=== PATIENT | male | born 1940 | race Caucasian/White ===

== ENCOUNTER → 2023-07-31 10:17 | Outpatient (REF) | payer MEDICARE, SELFPAY | LOC: DHVS 10:17 | PROVIDERS: ATTENDING PHYSICIAN Surgery Vascular Surgery | DX: I65.22 Occlusion and stenosis of left carotid artery (principal) | CPT/HCPCS: 93880 ==

== ENCOUNTER → 2023-09-19 11:10 | Outpatient (REF) | payer MEDICARE, SELFPAY | LOC: RCS 11:10 | PROVIDERS: ATTENDING PHYSICIAN Internal Medicine Interventional Cardiology; FAMILY PHYSICIAN Internal Medicine | DX: I35.0 Nonrheumatic aortic (valve) stenosis (principal) | CPT/HCPCS: 93306 ==

== ENCOUNTER → 2024-02-22 10:40 | Outpatient (REF) | payer MEDICARE, SELFPAY | LOC: DHVS 10:40 | PROVIDERS: ATTENDING PHYSICIAN Surgery Vascular Surgery; FAMILY PHYSICIAN Internal Medicine; OTHER PHYSICIAN Physician Assistant | DX: I65.22 Occlusion and stenosis of left carotid artery (principal) | CPT/HCPCS: 93880 ==

== ENCOUNTER → 2024-03-20 14:11 | Outpatient (REF) | payer MEDICARE, SELFPAY | LOC: HWRAD 14:11 | PROVIDERS: ATTENDING PHYSICIAN Orthopaedic Surgery Hand Surgery; FAMILY PHYSICIAN Internal Medicine | DX: M25.512 Pain in left shoulder (principal) | CPT/HCPCS: 73200 ==

== ENCOUNTER 2024-04-15 09:25 | Emergency (ER) | payer MEDICARE, SELFPAY ==
[2024-04-15 09:29] VITALS: BP 163/83
[2024-04-15 10:00] LABS: % Basophils 0.9 % (0-2); % Eosinophils 2.6 % (0-6); % Immature Granulocytes 0.5 % (0-0.5); % Monocytes 10.1 % (1.7-9.3); % Neutrophils 66.9 % (42.2-75.2); Absolute Basophils 0.1 10^3/uL (0-0.2); Absolute Eosinophils 0.2 10^3/uL (0-0.7); Absolute Immature Granulocytes 0.1 10^3/uL (0-0.05); Absolute Lymphocytes 1.8 10^3/uL (1.2-3.4); Absolute Neutrophils 6.3 10^3/uL (1.4-6.5); Hematocrit 40.9 % (39.0-52.0); Mean Corp Hgb Conc. 34.2 g/dL (33.0-37.0); Mean Corpuscular Hgb 31.1 pg (27.0-31.0); Mean Corpuscular Volume 90.9 fL (80.0-94.0); Mean Platelet Volume 10.1 fL (7.4-10.4); Nucleated Red Blood Cells % 0 % (-); Platelet Count 250 10^3/uL (130-400); Red Cell Dist. Width 13.5 % (11.5-14.5); White Blood Cell Count 9.4 10^3/uL (4.8-10.8)
[2024-04-15 10:16] LABS: ALT (SGPT) 18 U/L (0-50); AST (SGOT) 27 U/L (17-59); Albumin 4.2 g/dl (3.5-5.0); Alkaline Phosphatase 77 U/L (38-126); Blood Urea Nitrogen 22 mg/dl (9-20); Calcium 8.6 mg/dl (8.4-10.2); Carbon Dioxide 30 mmol/L (22-30); Chloride 102 mmol/L (98-107); Glucose 81 mg/dl (70-99); Potassium 3.9 mmol/L (3.5-5.1); Sodium 140 mmol/L (135-145); Total Bilirubin 0.5 mg/dl (0.2-1.3); Total Protein 7.1 g/dl (6.3-8.2); eGFR > 60.00
[2024-04-15 10:24] LABS: Troponin I 0.028 ng/ml
--- NOTE | 2024-04-15 10:56 | ED.GENMED ---
History of Present Illness
General
Chief Complaint: Cardiac Symptoms
Source: patient
Exam Limitations: none
Time Seen by Provider: 04/15/24 10:55
Nursing documentation reviewed up to this point in time: agreed with
History of Present Illness
History of Present Illness:
83-year-old male past medical history of AAA, hypertension hyperlipidemia presenting to the emergency department with concerns of weakness fatigue left-sided chest pressure some pain going into the left arm initially had some tingling into the pinky
finger and ring finger which has since resolved. Very minimal symptoms at this time.
Past History
Past History
ED Past Medical History: Cancer (Colon, skin), HTN, Hypercholesterolemia and Other (PE >25yrs ago)
ED Past Surgical History: Bowel resection and Orthopedic
Social History
Tobacco: Non-smoker
Alcohol: Occasional
Drug: None
Personal:
Living: with family
Review of Systems
Review of Systems
Allergies reviewed?: Yes
All Other Systems: ROS reviewed and negative except as documented in HPI and ROS
Phy Exam
Physical Exam
Physical Exam:
GENERAL: Alert , in no apparent distress
EYE: pupils equal and reactive
NECK: Supple, no significant adenopathy.
ENT: o/p clr, mmm.
CARDIAC: Regular rate and rhythm .
LUNGS: Clear breath sounds bilaterally, no acute respiratory distress, no wheezes/rales/rhonchi
ABDOMEN: Soft, without focal tenderness, no r/g, no cvat
NEUROLOGICAL: Alert and oriented, no focal neuro deficits
SKIN: Warm and dry, skin intact.
MUSCULOSKELETAL: No edema, well perfused.
PSYCH: Normal and appropriate interaction.
Course
Orders/Labs/Results
Orders:
Orders
04/15/24 09:26
ECG [Electrocardiogram (*1)] Urgent
Reason for Study: Chest Pain
Other Reason for Exam: L arm pain
EKG- Treatment ONCE
04/15/24 09:50
Complete Blood Count/With Diff Urgent
Comprehensive Metabolic Panel Urgent
Troponin I Urgent
04/15/24 10:56
Chest [CR Chest - 2 Views ] Urgent
Comment:
Reason For Exam: L chest pain
04/15/24 12:28
Echo 2D MMode Color/Doppler [Echo 2D MMode Color/Doppler] Routine
Reason for Study: chest pain, SOB, known aortic stenosis
Cardiology Consult: Douglas Pires
BNP [NT-proBNP] Urgent
Troponin I Urgent
04/15/24 12:30
Electrocardiogram (*1) Urgent
Reason for Study: Chest Pain
EKG- Treatment ONCE
04/15/24 15:43
CARDIOLOGY CONSULT Urgent
Consulting Provider: Kevin Duff
Was physician already notified: Yes
Abnormal Lab Results
04/15/24
09:50
RBC 4.50 L 10^6/uL
(4.70-6.10)
MCH 31.1 H pg
(27.0-31.0)
Abs Immat Gran (auto) 0.1 H 10^3/uL
(0-0.05)
Absolute Monos (auto) 1.0 H 10^3/uL
(0.1-0.6)
Lymphocytes % 19.0 L %
(20.5-51.1)
Monocytes % 10.1 H %
(1.7-9.3)
BUN 22 H mg/dl
(9-20)
04/15/24 09:50
04/15/24 09:50
Vital Signs
Initial and Last Documented VS:
Initial Vital Signs
Temp Pulse Resp BP Pulse Ox
97.8 F 55 16 163/83 98
04/15/24 09:29 04/15/24 09:29 04/15/24 09:29 04/15/24 09:29 04/15/24 09:29
Last Documented Vital Signs
Temp Pulse Resp BP Pulse Ox
97.8 F 55 16 150/69 97
04/15/24 09:29 04/15/24 13:30 04/15/24 13:30 04/15/24 13:00 04/15/24 13:15
MDM/Problems Addressed
MDM/Problems Addressed:
83-year-old male presenting to the emergency department with left-sided chest pain. Also some radiation to his arm and some tingling into his pinky and ring finger. Here initial blood pressure elevated otherwise normal vital signs labs
unremarkable, troponin negative chest x-ray without emergent findings EKG unchanged. Patient does have significant pansystolic murmur that is consistent with patient's known aortic stenosis. Otherwise labs here unremarkable troponin negative x 2
BNP in the 400s. Chest x-ray without emergent findings. Cardiology consulted saw the patient and got an echo here. Patient was assessed by the cardiology attending and deemed stable for outpatient close follow-up. Return precautions given.
*Critical Care Note
Total Time (30-74mins, 75-104mins- exclusive of procedures): Not Applicable
ED Attending Note
-
Portions of this chart may have been created with voice recognition software.� Occasional wrong word or��sound alike� substitutions may have occurred due to the inherent limitations of voice recognition software.
Discharge Plan
Departure
Patient Disposition: Home (Routine Discharge)
Date of Disposition: 04/15/24
Time of Disposition: 15:44
Patient with high blood pressure during this ER visit?: No
Condition: Good
Covid-19: Not Applicable
Discharge Problem:
Chest pain
Instructions: Chest Pain (DC)
Prescriptions:
No Action
Kemar Original 325-1,916-1,000 mg Tablet, Effervescent
1 tab PO DAILYPRN PRN (Reason: stomach issues)
Patient Comments:
9/13/23 BD: Patient awake that wanda garner contains aspirin and states that typical dose is one tablet which contains ~162mg aspirin. When taken, aware that this is a substitute for daily aspirin.
melatonin 3 mg tablet
3 mg PO HSPRN PRN (Reason: sleep)
docusate sodium 100 MG capsule
100 mg PO DAILYPRN PRN (Reason: constipation)
pantoprazole 40 MG tablet,delayed release (DR/EC)
40 mg PO DAILY
aspirin 81 mg tablet,chewable
81 mg PO DAILY
atorvastatin 80 mg Tablet
80 mg PO QPM 30 Days Qty: 30 0RF
clopidogrel 75 mg Tablet
75 mg PO DAILY 30 Days Qty: 30 0RF
Referrals:
Douglas Singh MD [Active] - 06/27/24 8:40 am (You have cardiology follow-up with Dr. Singh on June 27 at 8:40 AM in [address] in the [place]. If you are unable to make this appointment please call [phone] to reschedule)
David Boyd MD [Family Provider] -
Activity Restrictions/Additional Instructions:
You came to the emergency department today with concerns of chest discomfort. Here you had a reassuring assessment. Please follow closely with cardiology. Return to the emergency department for any worsening, new or concerning symptoms.
Interventions
Interventions:
*Risk Screen - Suicide Last Done: 04/15/24 09:29
*Neglect/Abuse Screening Last Done: 04/15/24 09:29
ED- Fall Risk Assessment Last Done: 04/15/24 12:34
ED- Pulmonary Assessment Last Done: 04/15/24 12:34
ED- Cardiac Assessment Last Done: 04/15/24 12:34
Discharge Date and Time
Print Language: HONDURAN
[2024-04-15 11:37] VITALS: BP 142/76
[2024-04-15 12:00] VITALS: BP 146/75
[2024-04-15 12:27] VITALS: BMI 35.4
[2024-04-15 12:29] VITALS: BP 144/77
[2024-04-15 13:00] VITALS: BP 150/69
[2024-04-15 14:16] LABS: NT-proBNP 411 pg/ml; Troponin I 0.018 ng/ml
--- NOTE | 2024-04-15 15:04 | CON.CAR ---
Addendum entered and electronically signed by Kevin Duff DO 04/15/24 16:34:
I saw and examined the patient.
The Well Drill Operator's note was reviewed and I agree with the note.
Comment:
Plan:
His chest pain was atypical and fleeting and has resolved. Trop were negative for ischemia. His EKG was unremarkable.
Urgent echo performed that was stable overall from his last echo in September 2023, other than a slight increase in his peak aortic valve gradient. His mean gradient remain unchanged. We discussed follow-up evaluation with Dr. Singh given his moderate
to severe aortic stenosis. We will move up his routine 6-month appointment. We discussed symptoms to look for with regards to progressive aortic stenosis including but not limited to syncope, shortness of breath in the setting of heart failure and
chest pain. We also discussed that if he has recurrent symptoms, that he should not drive himself to the emergency room that he should use EMS.
Echo Apr 15 2024 read by me: EF of 55% with normal regional wall motion and mild LVH. Aortic valve gradients similar although peak gradient slightly higher currently 66 mmHg (previously 54 mmHg with mean gradient of 34 mmHg. LORE 1.1 cm�.
He has been contemplating shoulder surgery but will likely get an injection of steroids in the interim. He understands that he would need cardiac risk assessment prior to any surgery.
His workup has been negative in the emergency room. He is stable for discharge from a cardiac standpoint.
Discussed with his family member at bedside. He and the patient understand and agree with current status and plan of care.
Discussed with the emergency room.
Original Note:
Consultation
Consultation Request
Date/Time Consultation Requested: 04/15/2024
Date/Time Consultation Performed: 04/15/2024
Requesting Provider: Edgar Martin PA-C
Performing Provider: Lolita Ferraro PA-C for Dr. Kevin Duff
Reason for Consultation: Chest pain
Medical History
-
History of Present Illness:
Patient is an 83-year-old male with past medical history significant for mildly dilated ascending aortic aneurysm, moderate to severe aortic stenosis, hypertension, hyperlipidemia, colon cancer, pulmonary embolism post left knee replacement, acute
stroke December 2022 for which he was found to have significant carotid artery disease status post left CEA who presents to emergency department 04/15/2024 with complaints of sharp left-sided chest discomfort. Patient reports he awoke in the middle
the night with a sharp stabbing pinpoint chest discomfort that lasted approximately 60 seconds while lying down. Symptoms resolved and he was able to go back to sleep. Upon awakening he just felt off and not quite himself so he decided to come to
emergency department for evaluation. At time of presentation to emergency patient denied having chest pain, shortness of breath, dizziness or lightheadedness. Troponin noted to be elevated at 0.028, repeat 0.018. EKG showed sinus rhythm with
first-degree AV block and no evidence of ischemia chest x-ray showed mild decreased bilateral lung volumes without evidence of pulmonary edema, pleural effusion or pneumonia. proBNP unremarkable at 411. At time of this evaluation patient denies
recurrence of chest discomfort, shortness of breath, dizziness or lightheadedness. He does report recently some issues with balance 'losing my balance and I feel a bit unsteady if I move too quickly.'. He denies falls or reoccurrence of stroke
symptoms.
Past medical history:
Mildly dilated ascending aorta
Aortic stenosis, moderate to severe
Hypertension
Hyperlipidemia
Acute stroke December 2022
Left carotid artery stenosis
Status post left CEA 12/2022
History of colon cancer status post colon resection 1998
Pulmonary embolism post knee replacement
Past Medical History
Past Medical History: Other (See HPI)
Past Surgical History: Bowel Resection (Insetting of colon cancer 1998), Orthopedic (Total left knee replacement) and Other (Eye surgery, left CEA December 2022)
Social History
Tobacco: Non-Smoker
Alcohol: Occasional
Drug: None
Personal:
Living: With Family
Employment: Retired
Family History
Family History: Reviewed & Not Pertinent
Allergies / Home Medications
Allergy/AdvReac Type Severity Reaction Status Date / Time
No Known Allergies Allergy Verified 04/15/24 09:45
�Medication �Instructions �Recorded �Confirmed �Type
aspirin 81 mg chewable tablet 81 mg PO DAILY Blood Clot 12/14/22 12/14/22 History
Prevention/Tx
aspirin-sod bicarb-citric acid 325 1 tab PO DAILYPRN PRN stomach 12/14/22 12/14/22 History
mg-1,916 mg-1,000 mg efferves tab issues
(Kemar Original)
docusate sodium 100 mg capsule 100 mg PO DAILYPRN PRN constipation 12/14/22 12/14/22 History
melatonin 3 mg tablet 3 mg PO HSPRN PRN sleep 12/14/22 12/14/22 History
pantoprazole 40 mg tablet,delayed 40 mg PO DAILY Gastrointestinal 12/14/22 12/14/22 History
release Issue
atorvastatin 80 mg tablet 80 mg PO QPM 30 days #30 tabs 12/17/22 Rx
clopidogrel 75 mg tablet 75 mg PO DAILY 30 days #30 tabs 12/17/22 Rx
Review of Systems
-
History Source: Patient
All other systems: Negative unless noted
Physical Exam
Vital Signs
Temp Pulse Resp BP Pulse Ox
97.8 F 55 16 150/69 97
04/15/24 09:29 04/15/24 13:30 04/15/24 13:30 04/15/24 13:00 04/15/24 13:15
GEN: No distress, awake, Ox3
HEENT: supple, anicteric, mmm
LUNGS: CTA, no wheezes/rales
CV: Reg, S1/S2, 2/6 harsh radiating murmur RSB with lower pitch murmur at apex, no rubs or gallop
ABD: soft, BS+, NT/ND
EXT: No edema, clubbing or cyanosis
NEURO: Gross non-focal
SKIN: No rash, warm, dry, pink
Lab Results
04/15/24 09:50
04/15/24 09:50
Troponin I 0.018 ng/ml D 04/15/24 12:28
Cbn-C-Dwsydvkvfic Pept 411 pg/ml 04/15/24 12:28
Impression / Plan
-
PCP: David Boyd
Shuttle Buggy Operator: Douglas Singh
Impression:
Presentation 04/15/2024 atypical chest pain that awoke patient from sleep
Mildly dilated ascending aorta
Aortic stenosis, moderate to severe
Acute stroke December 2022
Hypertension
Hyperlipidemia
Left carotid artery stenosis
Status post left CEA 12/2022
History of colon cancer status post colon resection 1998
Pulmonary embolism post knee replacement
Echo 04/15/2024: EF 55%. Normal regional wall motion. Mild concentric LVH. Mild MR. Mild MS with mean gradient 5. Moderate to severe aortic stenosis with peak/mean gradient 66/34 mmHg with LORE 1.0 to 1.1 cm�. Mild AI/TR.
Echo 09/19/2023: LV: Normal size and function. EF 54%. Mild LVH. RV: Normal, LA: Moderately dilated, RA: Normal, MV: Trace MR. Mild MS with mean gradient 6 mmHg. AV: Thickened Mild AI, Mod P/M 54/34 mmHg and LORE 1.2 cm2, TV: Trace TR with PAP 26
mmHg.-12/16/2022 Echo: LV: EF 70-75%. RV: Normal, LA: Mildly dilated. RA: Normal, MV: Trace MR, AV: Mild-mod with P/M: 45/20 mmHg. Pvel: 3.35 m/sec. TV: Mild TR with PAP 39 mmHg
12/20/2011 MPI Normal EF, Randy Protocol : 6:15 minutes for (7.2 METs), Perfusion demonstrates : Normal perfusion, LVEF : 72%, ECG : Normal This is a low risk stress study
Plan:
Presents 04/15/2024 atypical left-sided sharp chest pain that awoke patient from sleep. Chest pain lasted approximately 60 seconds then resolved spontaneously. Patient felt unwell upon awakening and decided to seek emergency medical attention.
He has had no reoccurrence of chest pain since the middle of the night. His EKG shows sinus rhythm without ischemic changes. Troponin x 2 is negative. Doubt symptoms are ACS.
Blood pressure initially elevated in emergency department however did improve upon repeat evaluation. Would continue on outpatient dose of amlodipine 5 mg.
Patient has history of known aortic stenosis which is moderate to severe. He underwent echocardiogram today which showed EF of 55% with normal regional wall motion and mild LVH. Aortic valve gradients similar although peak gradient slightly higher
currently 66 mmHg (previously 54 mmHg with mean gradient of 34. LORE 1.1 to 1.2 cm�.
Patient overall stable from cardiac standpoint and can be discharged. Will arrange for outpatient cardiology follow-up in 2 to 3 months with primary outpatient reprint sorter Dr. Singh.
HPI 04/15/2024:
Patient is an 83-year-old male with past medical history significant for mildly dilated ascending aortic aneurysm, moderate to severe aortic stenosis, hypertension, hyperlipidemia colon cancer, pulmonary embolism post left knee replacement, acute
stroke December 2022 for which he was found to have significant carotid artery disease status post left CEA who presents to emergency department 04/15/2024 with complaints of sharp left-sided chest discomfort. Patient reports he awoke in the middle
the night with a sharp stabbing pinpoint chest discomfort that lasted approximately 60 seconds while lying down. Symptoms resolved and he was able to go back to sleep. Upon awakening he just felt off and not quite himself so he decided to come to
emergency department for evaluation. At time of presentation to emergency patient denied having chest pain, shortness of breath, dizziness or lightheadedness. Troponin noted to be elevated at 0.028, repeat 0.018. EKG showed sinus rhythm with
first-degree AV block and no evidence of ischemia chest x-ray showed mild decreased bilateral lung volumes without evidence of pulmonary edema, pleural effusion or pneumonia. proBNP unremarkable at 411. At time of this evaluation patient denies
recurrence of chest discomfort, shortness of breath, dizziness or lightheadedness. He does report recently some issues with balance 'losing my balance and I feel a bit unsteady if I move too quickly.'. He denies falls or reoccurrence of stroke
symptoms.
Data Reviewed
-
EKG: Report Reviewed by me, Discussed with Physician, Discussed with Patient and Discussed with Family
Radiology: Report Reviewed by me, Discussed with Physician, Discussed with Patient and Discussed with Family
Medical Tests (Nuc Med, Echo etc): Report Reviewed by me, Discussed with Physician, Discussed with Patient and Discussed with Family
Labs: Labs Reviewed by me, Discussed with Physician, Discussed with Patient and Discussed with Family
== END 2024-04-15 15:59 | disposition home or self-care (01) ==
LOC: EMR 09:25
PROVIDERS: Physician Assistant; CONSULT PHYSICIAN Nuclear Medicine Nuclear Cardiology; EMERGENCY PHYSICIAN Emergency Medicine; FAMILY PHYSICIAN Internal Medicine
DX: R07.89 Other chest pain (principal); E78.00 Pure hypercholesterolemia, unspecified; I10 Essential (primary) hypertension; Z90.49 Acquired absence of other specified parts of digestive tract; Z86.73 Personal history of transient ischemic attack (TIA), and cerebral infarction without residual deficits; Z86.711 Personal history of pulmonary embolism; Z85.038 Personal history of other malignant neoplasm of large intestine; Z86.79 Personal history of other diseases of the circulatory system
CPT/HCPCS: 99285; 71046; 80053; 83880; 84484; 85025; 93005; 93306

== ENCOUNTER 2024-07-17 06:39 | Day surgery (SDC) | payer MEDICARE, SELFPAY ==
[2024-07-05 11:38] LABS: Hematocrit 40.8 % (39.0-52.0); Hemoglobin 13.7 g/dL (13.0-18.0); Mean Corp Hgb Conc. 33.6 g/dL (33.0-37.0); Mean Corpuscular Hgb 31.4 pg (27.0-31.0); Mean Corpuscular Volume 93.4 fL (80.0-94.0); Mean Platelet Volume 10.7 fL (7.4-10.4); Platelet Count 241 10^3/uL (130-400); Red Blood Cell Count 4.37 10^6/uL (4.70-6.10); Red Cell Dist. Width 13.6 % (11.5-14.5); White Blood Cell Count 8.4 10^3/uL (4.8-10.8)
[2024-07-05 12:08] LABS: ALT (SGPT) 25 U/L (0-50); AST (SGOT) 27 U/L (17-59); Albumin 4.2 g/dl (3.5-5.0); Alkaline Phosphatase 96 U/L (38-126); Blood Urea Nitrogen 25 mg/dl (9-20); Calcium 9.1 mg/dl (8.4-10.2); Carbon Dioxide 30 mmol/L (22-30); Chloride 104 mmol/L (98-107); Glucose 84 mg/dl (70-99); Potassium 4.6 mmol/L (3.5-5.1); Sodium 142 mmol/L (135-145); Total Bilirubin 0.5 mg/dl (0.2-1.3); Total Protein 7.1 g/dl (6.3-8.2); eGFR 59.63
[2024-07-05 13:06] LABS: Glycohemoglobin (HgbA1c) 5.9 % (4.0-5.6)
[2024-07-05 14:03] VITALS: BMI 36.2
[2024-07-05 14:51] VITALS: BMI 36.2
--- NOTE | 2024-07-15 09:48 | CM ---
CM reviewed medical records. Patient lives independently with at [facility]. Patient denied history of VN or SNF. Patient does not have ambulation aides that he relies on. Patient is active with his PCP DR. David Boyd. Patient uses [facility]
for medication services.
Patient stated that his son Ashly will be available for assistance post operatively and will provide transportation.
CM will refer patient to [facility] via [facility].
PLAN: home with [facility].
[2024-07-17] VITALS (7 sets, daily range): BP systolic 95–130; BP diastolic 52–76
[2024-07-17] MEDS: CELEBREX 200 MG PO (10:53)
[2024-07-17] MEDS: TYLENOL 1000 MG PO (10:53)
[2024-07-17] MEDS: NORMOSOL-R/PLASMALYTE-A 1000 IV (11:07)
[2024-07-17] MEDS: BACTROBAN NASAL 1 GRAM NASAL (11:07)
--- NOTE | 2024-07-17 15:10 | W.DS.TRANS ---
DC Summary - Step Down Specialist
-
Discharge Instructions:
Sleep Apnea Risk High
Discharge Diagnosis/Procedures L BETHANY Nagy 07/17/24
Diet As tolerated
Activity No strenuous activity
Driving Restrictions No driving
Instructions:
Stand-Alone Forms: SDS Total Shoulder D/C Inst.
Changes to Home Medications: Yes
Discharge Medications:
DC Medications w/original date entered in [facility]
aspirin-sod bicarb-citric acid 325 mg-1,916 mg-1,000 mg efferves tab ([place] Original) 1 tab PO DAILYPRN PRN stomach issues 12/14/22
melatonin 3 mg tablet 3 mg PO HSPRN PRN sleep 12/14/22
amlodipine 5 mg tablet 5 mg PO DAILY 07/04/24
atenolol 50 mg tablet 50 mg PO DAILY 07/04/24
atorvastatin 40 mg tablet 40 mg PO DAILY 07/04/24
dexamethasone 4 mg tablet 4 mg PO BID inflammation #6 tabs 07/05/24
doxycycline hyclate 100 mg capsule 100 mg PO BID infection prevention #10 caps 07/05/24
famotidine 20 mg tablet 20 mg PO HS GI prophylaxis #30 tabs 07/05/24
gabapentin 300 mg capsule 300 mg PO HS sleep/pain #10 caps 07/05/24
meloxicam 15 mg tablet 15 mg PO DAILY anti-inflammatory #14 tabs 07/05/24
mupirocin 2 % topical ointment 1 applic topical BID infection prevention #1 tube 07/05/24
ondansetron 4 mg disintegrating tablet 4 mg PO Q6H PRN n/v #20 tabs 07/05/24
oxycodone 5 mg tablet 5 mg PO Q6H PRN 1 tab moderate pain, 2 tabs severe pain #30 tabs 07/05/24
Saccharomyces boulardii 250 mg capsule (Florastor) 250 mg PO BID #1 cap 07/17/24
acetaminophen 325 mg tablet (Tylenol) 650 mg (2 x 325 mg) PO QID #1 tab 07/17/24
aspirin 325 mg tablet 325 mg PO DAILY blood clot prevention/hx stroke/carotid stenosis #1 tab 07/17/24
docusate sodium 100 mg capsule (Colace) 100 mg PO BID stool softner #1 cap 07/17/24
magnesium hydroxide 400 mg/5 mL oral suspension (Milk of Magnesia) 30 ml PO HS PRN Constipation #1 mL 07/17/24
sennosides 8.6 mg tablet (Senokot) 17.2 mg (2 x 8.6 mg) PO BID laxative #2 tabs 07/17/24
Home Medication Changes
dexamethasone 4 mg tablet 4 mg PO BID inflammation #6 tabs 07/05/24
doxycycline hyclate 100 mg capsule 100 mg PO BID infection prevention #10 caps 07/05/24
famotidine 20 mg tablet 20 mg PO HS GI prophylaxis #30 tabs 07/05/24
gabapentin 300 mg capsule 300 mg PO HS sleep/pain #10 caps 07/05/24
meloxicam 15 mg tablet 15 mg PO DAILY anti-inflammatory #14 tabs 07/05/24
mupirocin 2 % topical ointment 1 appli
Pending Results: No
[2024-07-17] MEDS: ANCEF 5 IV (17:49)
== END 2024-07-17 18:02 | disposition home or self-care (01) ==
LOC: SDS 06:39
PROVIDERS: ATTENDING PHYSICIAN Orthopaedic Surgery Hand Surgery; FAMILY PHYSICIAN Internal Medicine; REFERRING PHYSICIAN Internal Medicine Interventional Cardiology
DX: M19.012 Primary osteoarthritis, left shoulder (principal); M75.102 Unspecified rotator cuff tear or rupture of left shoulder, not specified as traumatic
CPT/HCPCS: 23472; 36415; 73020; 80053; 83036; 85027; 87070; C1713; C1776

== ENCOUNTER → 2024-08-30 09:24 | Outpatient (REF) | payer MEDICARE, SELFPAY | LOC: RAD 09:24 | PROVIDERS: ATTENDING PHYSICIAN Surgery Vascular Surgery; FAMILY PHYSICIAN Internal Medicine | DX: I65.22 Occlusion and stenosis of left carotid artery (principal) | CPT/HCPCS: 93880 ==

== ENCOUNTER → 2024-09-10 10:02 | Outpatient (REF) | payer MEDICARE, SELFPAY | LOC: RCS 10:02 | PROVIDERS: ATTENDING PHYSICIAN Internal Medicine Interventional Cardiology; FAMILY PHYSICIAN Internal Medicine | DX: I35.0 Nonrheumatic aortic (valve) stenosis (principal) | CPT/HCPCS: 93306 ==

== ENCOUNTER 2024-11-28 08:52 | Emergency (ER) | payer MEDICARE, SELFPAY ==
[2024-11-28 08:57] VITALS: BP 154/75
[2024-11-28 09:22] VITALS: BMI 35.7
--- NOTE | 2024-11-28 09:36 | ED.GENMED ---
History of Present Illness
<Smith Luther PA-C - Last Filed: 11/28/24 13:27>
General
Chief Complaint: Abdominal Pain
Time Seen by Provider: 11/28/24 09:27
History of Present Illness
History of Present Illness:
Patient is an 83-year-old male with past medical history of prior CVA, PE, history of abdominal aortic aneurysm, atrial fibrillation, hypertension, hyperlipidemia, history of colon cancer with resection, and skin cancer, here today for evaluation of
approximately 1 week of left-sided abdominal pain. No fevers. No vomiting. No diarrhea. Symptoms are worsened with movement and lying along the affected side. He did note a rash in this location that has been particularly painful.
Past History
<Smith Luther PA-C - Last Filed: 11/28/24 13:27>
Past History
ED Past Medical History: Cancer (Colon, skin), HTN, Hypercholesterolemia and Other (PE >25yrs ago)
ED Past Surgical History: Bowel resection and Orthopedic
Social History
Tobacco: Non-smoker
Alcohol: Occasional
Drug: None
Personal:
Living: with family
Review of Systems
<Smith Luther PA-C - Last Filed: 11/28/24 13:27>
Review of Systems
All Other Systems: ROS reviewed and negative except as documented in HPI and ROS
Phy Exam
<Smith Luther PA-C - Last Filed: 11/28/24 13:27>
Physical Exam
Physical Exam:
GENERAL: Alert , in no apparent distress
EYE: pupils equal and reactive
NECK: Supple, no significant adenopathy.
ENT: o/p clr, mmm.
ABDOMEN: Soft, mild left sided abdominal tenderness, no r/g, well-healed vertical surgical scar along the middle of the abdomen
NEUROLOGICAL: Alert and oriented, no focal neuro deficits
SKIN: Warm and dry, skin intact. 2 skin lesions along the left middle aspect of the abdomen, one of the lesions is noted to be a circular erythematous patchy lesion approximately 1 cm in diameter with mild scaly texture, the other lesion is noted
more medially along the middle of the abdomen which is much smaller approximately 2 mm in diameter
MUSCULOSKELETAL: No edema, well perfused.
PSYCH: Normal and appropriate interaction.
Course
<Smith Luther PA-C - Last Filed: 11/28/24 13:27>
Orders/Labs/Results
Orders:
Orders
11/28/24 09:39
CT Abd/pel W Iv And Oral Contr Urgent
Comment:
Reason For Exam: left sided abd pain
Iohexol [Omnipaque] See Protocol PO NOW STA
11/28/24 09:43
Complete Blood Count/With Diff Urgent
Comprehensive Metabolic Panel Urgent
Lipase Urgent
11/28/24 11:57
Urinalysis Reflex To Culture Urgent
Date Specimen was Collected: 11/28/24
Time Specimen was Collected: 11:56
Urine Microscopic Reflex Cult Urgent
Abnormal Lab Results
11/28/24 11/28/24
09:43 11:57
RBC 4.17 L 10^6/uL
(4.70-6.10)
Hgb 12.7 L g/dL
(13.0-18.0)
Hct 38.4 L %
(39.0-52.0)
Abs Immat Gran (auto) 0.1 H 10^3/uL
(0-0.05)
Absolute Monos (auto) 0.8 H 10^3/uL
(0.1-0.6)
Immature Gran % 0.6 H %
(0-0.5)
Lymphocytes % 18.1 L %
(20.5-51.1)
Monocytes % 9.5 H %
(1.7-9.3)
BUN 22 H mg/dl
(9-20)
Ur Occult Blood Reflex 1+ A
(Negative)
Urine Albumin (Reflex) 1+ A
(Neg - Trace)
11/28/24 09:43
11/28/24 09:43
Vital Signs
Initial and Last Documented VS:
Initial Vital Signs
Temp Pulse Resp BP Pulse Ox
97.8 F 55 18 154/75 96
11/28/24 08:57 11/28/24 08:57 11/28/24 08:57 11/28/24 08:57 11/28/24 08:57
Last Documented Vital Signs
Temp Pulse Resp BP Pulse Ox
97.8 F 64 15 159/74 95
11/28/24 08:57 11/28/24 12:39 11/28/24 12:39 11/28/24 12:39 11/28/24 11:08
<Ariella Gay MD - Last Filed: 11/28/24 12:22>
Orders/Labs/Results
Orders:
Orders
11/28/24 09:39
CT Abd/pel W Iv And Oral Contr Urgent
Comment:
Reason For Exam: left sided abd pain
Iohexol [Omnipaque] See Protocol PO NOW STA
11/28/24 09:43
Complete Blood Count/With Diff Urgent
Comprehensive Metabolic Panel Urgent
Lipase Urgent
11/28/24 11:57
Urinalysis Reflex To Culture Urgent
Date Specimen was Collected: 11/28/24
Time Specimen was Collected: 11:56
Urine Microscopic Reflex Cult Urgent
Abnormal Lab Results
11/28/24 11/28/24
09:43 11:57
RBC 4.17 L 10^6/uL
(4.70-6.10)
Hgb 12.7 L g/dL
(13.0-18.0)
Hct 38.4 L %
(39.0-52.0)
Abs Immat Gran (auto) 0.1 H 10^3/uL
(0-0.05)
Absolute Monos (auto) 0.8 H 10^3/uL
(0.1-0.6)
Immature Gran % 0.6 H %
(0-0.5)
Lymphocytes % 18.1 L %
(20.5-51.1)
Monocytes % 9.5 H %
(1.7-9.3)
BUN 22 H mg/dl
(9-20)
Ur Occult Blood Reflex 1+ A
(Negative)
Urine Albumin (Reflex) 1+ A
(Neg - Trace)
11/28/24 09:43
11/28/24 09:43
Vital Signs
Initial and Last Documented VS:
Initial Vital Signs
Temp Pulse Resp BP Pulse Ox
97.8 F 55 18 154/75 96
11/28/24 08:57 11/28/24 08:57 11/28/24 08:57 11/28/24 08:57 11/28/24 08:57
Last Documented Vital Signs
Temp Pulse Resp BP Pulse Ox
97.8 F 64 15 159/74 95
11/28/24 08:57 11/28/24 12:39 11/28/24 12:39 11/28/24 12:39 11/28/24 11:08
<Smith Luther PA-C - Last Filed: 11/28/24 13:27>
MDM/Problems Addressed
Differential Diagnosis Includes:
Patient is an 83-year-old male with past medical history of prior CVA, PE, history of abdominal aortic aneurysm, atrial fibrillation, hypertension, hyperlipidemia, history of colon cancer with resection, and skin cancer, here today for evaluation of
approximately 1 week of left-sided abdominal pain. Overall, patient appears very well. Vitals remarkable elevated blood pressure. Physical examination described above. On examination the patient is mildly tender along the left side of the middle
abdomen. There is no rebound or guarding. The patient does have evidence of 2 skin lesions along the left middle aspect of the abdomen. One of the lesions is noted to be a circular erythematous patchy lesion approximately 1 cm in diameter with
mild scaly texture. The other lesion is noted more medially along the middle of the abdomen which is much smaller approximately 2 mm in diameter. There is no vesicular appearance or tenderness. No drainage. Given age and symptoms we will obtain
labs and a CT scan of the abdomen and pelvis. If negative my suspicion for herpes zoster is high given dermatomal horizontal distribution of rash and symptoms.
11/28/24 13:15: Urinalysis negative for infection. CT scan reveals no acute abnormalities. There is incidental diverticulosis, moderate colonic fecal burden, and mild bladder wall thickening. Screening labs reveal mild anemia which is consistent
with the patient's baseline. Patient made aware of findings. Symptoms most consistent with herpes zoster. Will initiate therapy with Valtrex and recommend supportive measures. All questions answered. Stable for discharge.
<Smith Luther PA-C - Last Filed: 11/28/24 13:27>
*Pulse Oximetry
SaO2: 96
Oxygen Mode of Delivery: Room air
Patient hypoxic: no
*Critical Care Note
Total Time (30-74mins, 75-104mins- exclusive of procedures): Not Applicable
ED Attending Note
<Smith Luther PA-C - Last Filed: 11/28/24 13:27>
-
Portions of this chart may have been created with voice recognition software.� Occasional wrong word or��sound alike� substitutions may have occurred due to the inherent limitations of voice recognition software.
<Ariella Gay MD - Last Filed: 11/28/24 12:22>
ED Attending Note
Patient seen and examined by attending physician: Yes
I performed the substantive portion of visit, reviewed & personally made and approve the management plan that is documented in note by myself or ALESSANDRO.: Yes
ED Attending Note:
patient appears well and comfortable. States his pain is nearly gone. Abdomen is soft throughout. Questionable left mid flank abdominal tenderness but otherwise nontender throughout. Lungs are clear.
Discharge Plan
Departure
Patient Disposition: Home (Routine Discharge)
Date of Disposition: 11/28/24
Time of Disposition: 13:13
Patient with high blood pressure during this ER visit?: Yes
Condition: Good
Discharge Problem:
Left sided abdominal pain, Rash
Instructions: Shingles, Abdominal Pain
Prescriptions:
New
valacyclovir 1 gram tablet
1,000 mg PO Q8H 7 Days Qty: 21 0RF
No Action
Wanda[place] Original 325-1,916-1,000 mg Tablet, Effervescent
1 tab PO DAILYPRN PRN (Reason: stomach issues)
Patient Comments:
12/14/22 BD: Patient awake that wanda seltzer contains aspirin and states that typical dose is one tablet which contains ~162mg aspirin. When taken, aware that this is a substitute for daily aspirin.
melatonin 3 mg tablet
3 mg PO HSPRN PRN (Reason: sleep)
atorvastatin 40 mg Tablet
40 mg PO DAILY
amlodipine 5 mg Tablet
5 mg PO DAILY
atenolol 50 mg Tablet
50 mg PO DAILY
mupirocin 2 % ointment
1 applic topical BID Qty: 1 0RF
Patient Comments:
pt did not do this medication at all pre-op.
doxycycline hyclate 100 mg capsule
100 mg PO BID Qty: 10 0RF
Rx Instructions:
Take with probiotic
dexamethasone 4 mg tablet
4 mg PO BID Qty: 6 0RF
Rx Instructions:
take with food
post-op use only
meloxicam 15 mg tablet
15 mg PO DAILY Qty: 14 0RF
Rx Instructions:
take with food
post-op
famotidine 20 mg tablet
20 mg PO HS Qty: 30 0RF
Rx Instructions:
post-op
gabapentin 300 mg capsule
300 mg PO HS Qty: 10 0RF
Rx Instructions:
*POST-OP USE ONLY
ondansetron 4 mg tablet,disintegrating
4 mg PO Q6H PRN (Reason: n/v) Qty: 20 0RF
Rx Instructions:
take 1/2h b/f pain med if recurrent nausea
allow to dissolve in mouth w/o water
oxycodone 5 mg tablet
5 mg PO Q6H PRN (Reason: 1 tab moderate pain, 2 tabs severe pain) Qty: 30 0RF
Rx Instructions:
Ongoing therapy
POST-OP USE ONLY
sennosides [Senokot] 8.6 mg tablet
17.2 mg PO BID Qty: 2 0RF
acetaminophen [Tylenol] 325 mg tablet
650 mg PO QID Qty: 1 0RF
Rx Instructions:
SCHEDULED DOSING
aspirin 325 mg tablet
325 mg PO DAILY Qty: 1 0RF
Rx Instructions:
Take with food
magnesium hydroxide [Milk of Magnesia] 400 mg/5 mL suspension
30 ml PO HS PRN (Reason: Constipation) Qty: 1 0RF
docusate sodium [Colace] 100 mg capsule
100 mg PO BID Qty: 1 0RF
Saccharomyces boulardii [Florastor] 250 mg capsule
250 mg PO BID Qty: 1 0RF
Referrals:
David Boyd MD [Family Provider, Internal Medicine] - Follow up in 5-7 days
Activity Restrictions/Additional Instructions:
Begin taking the antiviral medication for treatment of shingles.
Follow-up with your doctor for further testing and evaluation.
Return for any new, worsening, or concerning symptoms.
Interventions
Interventions:
*Risk Screen - Suicide Last Done: 11/28/24 08:57
*General Assessment Last Done: 11/28/24 08:57
*Neglect/Abuse Screening Last Done: 11/28/24 08:57
*ED- Fall Risk Assessment Last Done: 11/28/24 09:22
*ED COVID-19 Vaccine History Last Done: 11/28/24 09:53
*Nursing Disposition Last Done: 11/28/24 13:22
FP-Orvnpe-Btymlhlnrq Assessment Last Done: 11/28/24 09:23
Discharge Date and Time
Discharge Date/Time: 11/28/24 13:23
Print Language: [place]ET[place]ESE
[2024-11-28] MEDS: OMNIPAQUE 50 ML PO (09:49)
[2024-11-28 09:52] LABS: Hematocrit 38.4 % (39.0-52.0); Hemoglobin 12.7 g/dL (13.0-18.0); Mean Corp Hgb Conc. 33.1 g/dL (33.0-37.0); Mean Corpuscular Volume 92.1 fL (80.0-94.0); Nucleated Red Blood Cells % 0 % (-); Platelet Count 197 10^3/uL (130-400); Red Cell Dist. Width 13.4 % (11.5-14.5)
[2024-11-28 10:06] LABS: ALT (SGPT) 18 U/L (0-50); AST (SGOT) 22 U/L (17-59); Albumin 3.8 g/dl (3.5-5.0); Alkaline Phosphatase 102 U/L (38-126); Blood Urea Nitrogen 22 mg/dl (9-20); Calcium 8.9 mg/dl (8.4-10.2); Carbon Dioxide 29 mmol/L (22-30); Chloride 106 mmol/L (98-107); Estimated Creatinine Clearance 61 ml/min; Glucose 91 mg/dl (70-99); Lipase 126 U/L (23-300); Potassium 4.0 mmol/L (3.5-5.1); Sodium 139 mmol/L (135-145); Total Protein 6.7 g/dl (6.3-8.2); eGFR > 60.00
[2024-11-28 10:15] VITALS: BP 122/55
[2024-11-28 11:08] VITALS: BP 166/90
[2024-11-28 12:07] LABS: Urine Character Clear (Clear)
[2024-11-28 12:39] VITALS: BP 159/74
[2024-11-28 13:27] LABS: Urine Red Blood Cell 0-2 /HPF (0-2); Urine White Cell 0-2 /HPF (0-5)
== END 2024-11-28 13:23 | disposition home or self-care (01) ==
LOC: EMR 08:52
PROVIDERS: Physician Assistant; EMERGENCY PHYSICIAN Emergency Medicine; FAMILY PHYSICIAN Internal Medicine
DX: R10.9 Unspecified abdominal pain (principal); R21 Rash and other nonspecific skin eruption; K57.30 Diverticulosis of large intestine without perforation or abscess without bleeding; I10 Essential (primary) hypertension; E78.00 Pure hypercholesterolemia, unspecified; I48.91 Unspecified atrial fibrillation; Z85.038 Personal history of other malignant neoplasm of large intestine; Z85.828 Personal history of other malignant neoplasm of skin; Z86.73 Personal history of transient ischemic attack (TIA), and cerebral infarction without residual deficits; Z86.79 Personal history of other diseases of the circulatory system
CPT/HCPCS: 99284; 74177; 80053; 81003; 81015; 83690; 85025; Q9967

== ENCOUNTER 2025-01-02 08:52 | Emergency (ER) | payer MEDICARE, SELFPAY ==
[2025-01-02 08:54] VITALS: BP 141/83
--- NOTE | 2025-01-02 09:11 | ED.GENMED ---
History of Present Illness
General
Chief Complaint: Breathing Problem
Source: patient
Time Seen by Provider: 01/02/25 09:00
History of Present Illness
History of Present Illness:
84-year-old male with past medical history of previous CVA, AAA, A-fib, hypertension and hyperlipidemia, PE not on any anticoagulants presenting to the ER for evaluation after he rolled out of his bed yesterday morning and since that has had trouble
taking a deep breath and with pain on the left anterior chest wall as well as noting right frontotemporal head injury. Patient states there is no LOC, vomiting, vision change, significant headache or any other injuries sustained. Patient's main
concern remains possible broken ribs or lung problem given he has discomfort with taking a deep breath. Patient without any other concerns.
Past History
Past History
ED Past Medical History: Cancer (Colon, skin), CVA, HTN, Hypercholesterolemia, Other (AAA) and Other (PE >25yrs ago)
ED Past Surgical History: Bowel resection and Orthopedic
Social History
Tobacco: Non-smoker
Alcohol: Occasional
Drug: None
Personal:
Living: with family
Review of Systems
Review of Systems
All Other Systems: ROS reviewed and negative except as documented in HPI and ROS
Phy Exam
Physical Exam
Physical Exam:
GENERAL: Alert , in no apparent distress
EYE: clear conjunctiva b/l
HEAD: Small area of ecchymosis to frontal temporal region of scalp
ENT: o/p clr, mmm.
CARDIAC: Regular rate and rhythm, systolic murmur left sternal border.
LUNGS: Clear breath sounds bilaterally, no acute respiratory distress, no wheezes/rales/rhonchi, does grimace with deep inspiration, tenderness anterior chest wall at the level of the 4th and 5th ribs
ABDOMEN: Soft, without focal tenderness, no r/g, no cvat
NEUROLOGICAL: Alert and oriented
SKIN: Warm and dry, skin intact.
MUSCULOSKELETAL: well perfused.
PSYCH: Normal and appropriate interaction.
Scores
Heart Failure Risk
Heart Failure Risk Score: Not Applicable
Heart Score for Chest Pain Patients
STEMI patient?: Not applicable
Withdrawal Assessment of Alcohol
Withdrawal Assessment Completed?: Not applicable
Course
Orders/Labs/Results
Orders:
Orders
01/02/25 08:59
CR Ribs-left 3 Vw W/pa Chest Urgent
Comment:
Reason For Exam: fall, rib pain
01/02/25 09:10
CT Head W/o Iv Contrast Urgent
Comment:
Reason For Exam: fall from bed, right sided frontotemporal bruising
Vital Signs
Initial and Last Documented VS:
Initial Vital Signs
Temp Pulse Resp BP Pulse Ox
98.3 F 63 16 141/83 96
01/02/25 08:54 01/02/25 08:54 01/02/25 08:54 01/02/25 08:54 01/02/25 08:54
Last Documented Vital Signs
Temp Pulse Resp BP Pulse Ox
98.3 F 64 20 140/68 98
01/02/25 08:54 01/02/25 10:53 01/02/25 10:53 01/02/25 10:53 01/02/25 10:53
MDM/Problems Addressed
Differential Diagnosis Includes:
Rib fracture
Rib Contusion
Pneumothorax
Scalp Contusion
ICH
PE and ACS considered however give pain clearly reproducible and affiliated with a known traumatic injury thought to be much less likely
MDM/Problems Addressed:
4-year-old male presenting to the emergency department for evaluation after he fell out of bed yesterday morning, continue walking anterior chest wall consistent with deep inspiration. No tachycardia, tachypnea or signs of respiratory distress.
Will obtain rib series x-rays and CT scan of the head. Patient declining anything for pain. Otherwise resting comfortably.
*Radiology
Radiology exam reviewed: radiology read reviewed
*Pulse Oximetry
SaO2: 96
Oxygen Mode of Delivery: Room air
Patient hypoxic: no
*Critical Care Note
Total Time (30-74mins, 75-104mins- exclusive of procedures): Not Applicable
Patient Management
Escalation/DeEscalation of care consider admission/obs:
CT and chest x-ray without any acute pathologies identified. Patient remains hemodynamically stable and in no acute distress. Can take Tylenol as needed as needed for pain. Aware of return precautions to the ER. Stable for discharge.
ED Attending Note
-
Portions of this chart may have been created with voice recognition software.� Occasional wrong word or��sound alike� substitutions may have occurred due to the inherent limitations of voice recognition software.
Discharge Plan
Departure
Patient Disposition: Home (Routine Discharge)
Date of Disposition: 01/02/25
Time of Disposition: 10:30
Patient with high blood pressure during this ER visit?: Yes
Discharge Problem:
Accidental fall from bed, Rib pain on left side
Instructions: Rib fracture or bruised rib - ED (DC)
Prescriptions:
No Action
Rebecca-[place] Original 325-1,916-1,000 mg Tablet, Effervescent
1 tab PO DAILYPRN PRN (Reason: stomach issues)
Patient Comments:
12/14/22 BD: Patient awake that rebecca seltzer contains aspirin and states that typical dose is one tablet which contains ~162mg aspirin. When taken, aware that this is a substitute for daily aspirin.
melatonin 3 mg tablet
3 mg PO HSPRN PRN (Reason: sleep)
atorvastatin 40 mg Tablet
40 mg PO DAILY
amlodipine 5 mg Tablet
5 mg PO DAILY
atenolol 50 mg Tablet
50 mg PO DAILY
mupirocin 2 % ointment
1 applic topical BID Qty: 1 0RF
Patient Comments:
pt did not do this medication at all pre-op.
doxycycline hyclate 100 mg capsule
100 mg PO BID Qty: 10 0RF
Rx Instructions:
Take with probiotic
dexamethasone 4 mg tablet
4 mg PO BID Qty: 6 0RF
Rx Instructions:
take with food
post-op use only
meloxicam 15 mg tablet
15 mg PO DAILY Qty: 14 0RF
Rx Instructions:
take with food
post-op
famotidine 20 mg tablet
20 mg PO HS Qty: 30 0RF
Rx Instructions:
post-op
gabapentin 300 mg capsule
300 mg PO HS Qty: 10 0RF
Rx Instructions:
*POST-OP USE ONLY
ondansetron 4 mg tablet,disintegrating
4 mg PO Q6H PRN (Reason: n/v) Qty: 20 0RF
Rx Instructions:
take 1/2h b/f pain med if recurrent nausea
allow to dissolve in mouth w/o water
oxycodone 5 mg tablet
5 mg PO Q6H PRN (Reason: 1 tab moderate pain, 2 tabs severe pain) Qty: 30 0RF
Rx Instructions:
Ongoing therapy
POST-OP USE ONLY
sennosides [Senokot] 8.6 mg tablet
17.2 mg PO BID Qty: 2 0RF
acetaminophen [Tylenol] 325 mg tablet
650 mg PO QID Qty: 1 0RF
Rx Instructions:
SCHEDULED DOSING
aspirin 325 mg tablet
325 mg PO DAILY Qty: 1 0RF
Rx Instructions:
Take with food
magnesium hydroxide [Milk of Magnesia] 400 mg/5 mL suspension
30 ml PO HS PRN (Reason: Constipation) Qty: 1 0RF
docusate sodium [Colace] 100 mg capsule
100 mg PO BID Qty: 1 0RF
Saccharomyces boulardii [Florastor] 250 mg capsule
250 mg PO BID Qty: 1 0RF
valacyclovir 1 gram tablet
1,000 mg PO Q8H 7 Days Qty: 21 0RF
Referrals:
David Boyd MD [Family Provider, Internal Medicine]
Interventions
Interventions:
*Risk Screen - Suicide Last Done: 01/02/25 08:54
*General Assessment Last Done: 01/02/25 10:56
*Neglect/Abuse Screening Last Done: 01/02/25 08:54
*ED- Fall Risk Assessment Last Done: 01/02/25 10:56
*ED COVID-19 Vaccine History Last Done: 01/02/25 10:56
*ED Influenza Vaccine History Last Done: 01/02/25 10:56
*Nursing Disposition Last Done: 01/02/25 10:52
ED- Cardiac Assessment Last Done: 01/02/25 09:00
ED- Pulmonary Assessment Last Done: 01/02/25 09:00
Discharge Date and Time
Discharge Date/Time: 01/02/25 10:53
Print Language: SERBIAN
[2025-01-02 10:53] VITALS: BP 140/68
== END 2025-01-02 10:53 | disposition home or self-care (01) ==
LOC: EMR 08:52
PROVIDERS: EMERGENCY PHYSICIAN Emergency Medicine; FAMILY PHYSICIAN Internal Medicine
DX: S00.03XA Contusion of scalp, initial encounter (principal); R07.89 Other chest pain; W06.XXXA Fall from bed, initial encounter; I10 Essential (primary) hypertension; I48.91 Unspecified atrial fibrillation; E78.00 Pure hypercholesterolemia, unspecified; Z85.038 Personal history of other malignant neoplasm of large intestine; Z86.73 Personal history of transient ischemic attack (TIA), and cerebral infarction without residual deficits; Z86.79 Personal history of other diseases of the circulatory system; Y92.003 Bedroom of unspecified non-institutional (private) residence as the place of occurrence of the external cause
CPT/HCPCS: 99284; 70450; 71101